=== PATIENT | female | born 1965 | race Caucasian/White ===

== ENCOUNTER 2017-11-16 12:50 | Day surgery (SDC) | payer BC, OTHER ==
[~2017-11-16] VITALS: Ht 165.1 cm; Wt 86.3 kg
[~2017-11-16 12:50] MED LIST: EPINEPHRINE 1 MG/ML, 1ML ONE; LIDOCAINE/PF 1%, 30ML ONE; ROPIvacaine/PF 0.5%, 30 ML ONE
[2017-11-16] MEDS ORDERED: LACTATED RINGERS 1,000 ML IV SCH (13:13)
[2017-11-16 13:18] VITALS: BP 153/94
[2017-11-16 13:41] LABS: ALANINE AMINOTRANSFERASE 51 U/L (12-78); ALBUMIN 4.2 g/dL (3.4-5.0); ANION GAP 6 mmol/L (5-15); CALCIUM 9.2 mg/dL (8.5-10.1); CHLORIDE 114 mmol/L (98-107); CREATININE 0.77 mg/dL (0.55-1.02)
[2017-11-16 13:44] LABS: ALKALINE PHOSPHATASE 87 U/L (45-117); BILIRUBIN,TOTAL 0.8 mg/dL (0.2-1.0); TOTAL PROTEIN 7.4 g/dL (6.4-8.2)
[2017-11-16] MEDS ORDERED: MIDAZOLAM 1 MG/ML, 2ML ONE (13:55)
[2017-11-16] MEDS ORDERED: FENTANYL PF 250 MCG/5ML ONE (13:58)
[2017-11-16] MEDS ORDERED: ROCURONIUM 10MG/ML,5ML ONE (14:20)
[2017-11-16] MEDS ORDERED: PROPOFOL 10 MG/ML, 20ML ONE (14:20)
[2017-11-16] MEDS ORDERED: CEFAZOLIN 1,000 MG ONE ×2 (14:24)
[2017-11-16] MEDS ORDERED: CLINDAMYCIN 150 MG/ML, 6ML ONE (14:39)
[2017-11-16] MEDS ORDERED: hydrALAzine 20 MG/ML, 1ML IV PRN (15:00)
[2017-11-16] MEDS ORDERED: MEPERIDINE/PF 25MG/0.5ML IVPush PRN (15:00)
[2017-11-16] MEDS ORDERED: METOPROLOL 1 MG/ML, 5ML IV PRN (15:00)
[2017-11-16] MEDS ORDERED: ALBUTEROL SULFATE 2.5 MG/3 ML NPPB PRN (15:00)
[2017-11-16] MEDS ORDERED: EPHEDRINE 50 MG/ML, 1ML IVPush PRN (15:00)
[2017-11-16] MEDS ORDERED: ONDANSETRON 2MG/ML, 2ML IV PRN (15:00)
[2017-11-16] MEDS ORDERED: HALOPERIDOL 5 MG/ML IV PRN (15:00)
[2017-11-16] MEDS ORDERED: HYDROmorphone 1 MG/ML, 1ML IV PRN (15:00)
[2017-11-16] MEDS ORDERED: OXYcodone 5 MG/5 ML ORAL.SOL UDC PO PRN (15:00)
[2017-11-16] MEDS ORDERED: PROMETHAZINE 25 MG/ML, 1ML IV PRN (15:00)
[2017-11-16] MEDS ORDERED: LABETALOL 5MG/ML, 20ML IV PRN (15:00)
[2017-11-16] MEDS ORDERED: FENTANYL PF 100 MCG/2ML IV PRN (15:00)
[2017-11-16] MEDS ORDERED: NEOSTIGMINE 1 MG/ML, 10ML ONE (15:27)
[2017-11-16] MEDS ORDERED: ONDANSETRON 2MG/ML, 2ML ONE ×2 (15:27)
[2017-11-16] MEDS ORDERED: DEXAMETHASONE 4 MG/ML, 1ML ONE (15:27)
[2017-11-16] MEDS ORDERED: GLYCOPYRROLATE 0.4 MG/2 ML, 2ML ONE (15:27)
== END 2017-11-16 17:40 | disposition home or self-care (01) ==
LOC: OUT 12:50
PROVIDERS: ATTEND Orthopaedic Surgery
DX: S43.432A Superior glenoid labrum lesion of left shoulder, initial encounter (principal); M65.812 Other synovitis and tenosynovitis, left shoulder; M25.812 Other specified joint disorders, left shoulder; M75.52 Bursitis of left shoulder; M67.812 Other specified disorders of synovium, left shoulder; X58.XXXA Exposure to other specified factors, initial encounter; Y93.89 Activity, other specified; Y92.89 Other specified places as the place of occurrence of the external cause; Y99.8 Other external cause status; Z88.6 Allergy status to analgesic agent; Z88.5 Allergy status to narcotic agent; E11.9 Type 2 diabetes mellitus without complications
CPT/HCPCS: 23130; 23430; 29823; 36415; 64415; 80053; 82962; 93005; C1713; J0171; J0690; J1100; J2250; J2405; J2704; J2710; J3010; J3490; J2795